=== PATIENT | female | born 1935 | race Caucasian/White ===

== ENCOUNTER → 2016-10-28 | Outpatient (CLI) | payer OTHER ==
--- NOTE | 2016-10-28 15:34 | DX ---
Chest, Two Views at 1501 hours History: Cold and cough for 2 weeks. Comparison: October 2015 Findings: Cardiac silhouette is within normal range. Atherosclerotic tortuous aorta. Linear scarring in the right lower lobe. Bilateral peribronchial thickening. No pneumonia, congestive heart failure, pleural effusion, or pneumothorax. Impression: 1. Bronchitis. 2. Atherosclerotic aorta. 3. No definite focal pneumonia.
== END ==
LOC: CIMAGING 14:50
PROVIDERS: ATTEND Internal Medicine
DX: J40 Bronchitis, not specified as acute or chronic (principal); J44.1 Chronic obstructive pulmonary disease with (acute) exacerbation
CPT/HCPCS: 71020; G0463

== ENCOUNTER 2017-02-04 11:03 | Emergency (ER) | payer OTHER ==
[2017-02-04] MEDS ORDERED: ONDANSETRON 4 MG/2 ML VIAL ONE (11:31)
--- NOTE | 2017-02-04 11:33 | EDPHY ---
H & P Stated Complaint: Urgency, frequency, chills, nausea. Time Seen by Provider: 02/04/17 11:32 - Personal History Current Tetanus/Diphtheria Vaccine: Unsure Current Tetanus Diphtheria and Acellular Pertussis (TDAP): Unsure Tetanus Vaccine Date: within last 10 years - Medical/Surgical History Hx Asthma: No Hx Chronic Respiratory Disease: No Hx Diabetes: No Hx Cardiac Disease: Yes Hx Renal Disease: No Hx Cirrhosis: No Hx Alcoholism: No Hx HIV/AIDS: No Hx Splenectomy or Spleen Trauma: No Other PMH: HTN, high cholesterol, chronic back pain, brain aneurysm clip, hysterectomy, tonsillectomy, bilateral carotid endarterectomy, left hip replacement,cad -stent - Social History Smoking Status: Heavy smoker Constitutional: Initial Vital Signs Temperature (C) 36.8 C 02/04/17 11:12 Heart Rate 86 02/04/17 11:12 Respiratory Rate 16 02/04/17 11:12 Blood Pressure 136/80 H 02/04/17 11:12 O2 Sat (%) 92 02/04/17 11:12 O2 Delivery Mode Room Air Allergies/Adverse Reactions: No Known Allergies Allergy (Verified 02/04/17 11:15) Home Medications: Medication Instructions Recorded Aspirin [Aspirin 81mg (*)] 81 mg PO HS 11/26/14 Ezetimibe/Simvastatin [Vytorin 0.5 each PO HS 11/26/14 10-20 mg Tablet] LORazepam [Ativan (*)] 1 mg PO DAILY PRN 11/26/14 Omeprazole [Prilosec 20 mg] 20 mg PO BID 11/26/14 Furosemide [Lasix 40 MG (*)] 40 mg PO DAILY #10 tab 12/07/14 Petrolat,Wht/Min Oil/Sod Chl 1 tawana EACHEYE HS #1 opht.oint 12/07/14 [Refresh P.m. Ointment] Coreg 10/11/15 Meclizine HCl 02/04/17 Methocarbamol 02/04/17 Proair Hfa 02/04/17 Telmisartan 02/04/17 Vytorin 10-10 mg Tablet 02/04/17 Medical Decision Making ED Course/Re-evaluation: CHIEF COMPLAINT: UTI symptoms HISTORY OF PRESENT ILLNESS: The patient is a 81 y/o female, with a history of UTIs, complaining of suprapubic pain and dysuria for the last few days. Her previous UTI was 3 months ago and resolved with a course of azithromycin. She has associated polyuria, nausea, some dizziness, and mild right-sided flank pain. She reports her symptoms feel exactly the same to previous UTIs. REVIEW OF SYSTEMS: A 10 point review of systems was performed and is negative with the exception of the elements mentioned in the history of present illness. PHYSICAL EXAM: HR, BP, O2 Sat, RR. Temp noted General Appearance: Alert, well hydrated, appropriate, and non-toxic appearing. Head: Atraumatic without scalp tenderness or obvious injury Eyes: Pupils equal, round, reactive to light and accommodation, EOMI, no trauma , no injection. Nose: Atraumatic, no rhinorrhea, clear. Throat: mucus membranes moist. Neck: Supple, nontender, no lymphadenopathy. Respiratory: No retractions, no distress, no wheezes, and no accessory muscle use. Lungs are clear to auscultation bilaterally. Cardiovascular: Regular rate and rhythm, no murmurs, rubs, or gallops. Good capillary refill all extremities. Gastrointestinal: Abdomen is soft, mild suprapubic tenderness, non-distended, no masses, no rebound, no guarding, no peritoneal signs. Musculoskeletal: Normal active ROM of all extremities, atraumatic. Mild right CVA tenderness. Neurological: Alert, appropriate, and interactive. Nonfocal neuro exam. Skin: No rashes, good turgor, no nodules on palpation. Past medical history: Recurrent UTIs and pyelonephritis, hypertension, CAD, external carotid stenosis, cerebral aneurysm Past surgical history: RCA stent 2009, left hip replacement, breast lumpectomy, hysterectomy, cerebral aneurysm clipping. Family history: noncontributory Social history: Smoker. PCP: Dr. Warren DIFFERENTIAL DIAGNOSIS: The differential diagnosis for the patient's dysuria and suprapubic abdominal pain included but was not limited to ovarian cyst, pelvic inflammatory disease, ovarian torsion, urinary tract infection, ectopic , cholecystitis, and appendicitis. MEDICAL DECISION MAKING: This is a 81 y/o female with a history of recurrent UTIs presenting with a few- day history of typical UTI symptoms for her. She has mild suprapubic and right CVA tenderness. Plan for UA and symptomatic treatment at this time. 1L IV NS and 4mg IV Zofran administered. UA indicates she may have a UTI. Due to this and her low back that may indicate upper tract infection, she will receive 1gm IV Ceftriaxone while here. She will be discharged with script for Keflex. I also recommended discussing use of Estrace with her PCP to help prevent recurrent UTIs. Standard UTI care instructions given. She is comfortable with this plan. - Data Points Laboratory Results: 02/04/17 11:20 Urine Color YELLOW Urine Appearance MODERATELY TURBID Urine pH 5.0 (5.0-7.5) Ur Specific Odin 1.013 (1.002-1.030) Urine Protein 2+ H (NEGATIVE) Urine Ketones NEGATIVE (NEGATIVE) Urine Blood 1+ H (NEGATIVE) Urine Nitrate NEGATIVE (NEGATIVE) Urine Bilirubin NEGATIVE (NEGATIVE) Urine Urobilinogen NEGATIVE EU EU (0.2-1.0) Ur Leukocyte Esterase 3+ H (NEGATIVE) Urine RBC Pending Urine WBC Pending Ur Epithelial Cells Pending Urine Glucose NEGATIVE (NEGATIVE) Medications Given: Discontinued Medications Sodium Chloride (Ns) 1,000 mls @ 0 mls/hr IV ONCE ONE PRN Reason: Wide Open Stop: 02/04/17 11:43 Last Admin: 02/04/17 11:42 Dose: 1,000 mls Ondansetron HCl (Zofran) 4 mg IVP EDNOW ONE Stop: 02/04/17 11:43 Last Admin: 02/04/17 11:42 Dose: 4 mg Departure - Departure Disposition: Home, Routine, Self-Care Clinical Impression: Atrophic vaginitis Urinary tract infection Qualifiers: Urinary tract infection type: acute cystitis Hematuria presence: without hematuria Qualified Code(s): N30.00 - Acute cystitis without hematuria Condition: Good Instructions: Urinary Tract Infection in Women (ED) Additional Instructions: 1. Take antibiotics as directed. Be sure to complete the entire prescription. 2. Use Tylenol or ibuprofen as directed on the packaging as needed for pain or fever. 3. Call the ED in 2 days for culture results. [phone]. 4. Follow up with your primary care provider for symptoms not improved over the next few days. 5. Return to the ED for severe worsening of condition. 6. I also recommend discussing possibility of atrophic vaginitis causing your recurrent UTIs with your PCP. Intravaginal Estrace may be a good option for you. Referrals: Mikala Warren MD [Primary Care Provider] - As per Instructions
[2017-02-04] MEDS ORDERED: ONDANSETRON 4 MG/2 ML VIAL IVP ONE (11:42)
[2017-02-04] MEDS ORDERED: NS 1,000 ML IV ONE (11:42)
[2017-02-04 12:28] LABS: COLOR YELLOW; LEUKOCYTE ESTERASE,URINE 3+ (NEGATIVE); NITRITE,URINE NEGATIVE (NEGATIVE)
[2017-02-04 12:34] LABS: BACTERIA 2+ /hpf (NONE SEEN); MUCUS TRACE /lpf (NONE-1+); WBC,URINE 50-182 /hpf (0-3)
[2017-02-04 12:54] VITALS: BP 162/85; PULSE 69; RESP 18; TEMP 98.6; O2SAT 98
== END 2017-02-04 12:52 | disposition home or self-care (01) ==
DX: N30.00 Acute cystitis without hematuria (principal); B96.89 Other specified bacterial agents as the cause of diseases classified elsewhere; N95.2 Postmenopausal atrophic vaginitis; F17.200 Nicotine dependence, unspecified, uncomplicated; I10 Essential (primary) hypertension; I25.10 Atherosclerotic heart disease of native coronary artery without angina pectoris; Z79.82 Long term (current) use of aspirin; Z95.5 Presence of coronary angioplasty implant and graft
CPT/HCPCS: 96361; 96365; 96375; 99284; J0696; J2405

== ENCOUNTER → 2018-05-05 | Outpatient (CLI) | payer OTHER | LOC: CIMAGING 08:46 | PROVIDERS: ATTEND Internal Medicine | DX: K86.9 Disease of pancreas, unspecified (principal); N26.1 Atrophy of kidney (terminal) | CPT/HCPCS: 76700-PO ==

== ENCOUNTER → 2018-06-27 | Outpatient (CLI) | payer OTHER ==
[~2018-06-27] MED LIST: IOPAMIDOL (ISOVUE-300) 100 ML BTL ONE
== END ==
LOC: CIMAGING 13:15
PROVIDERS: ATTEND Physician Assistant
DX: K57.30 Diverticulosis of large intestine without perforation or abscess without bleeding (principal); I70.0 Atherosclerosis of aorta; E27.9 Disorder of adrenal gland, unspecified
CPT/HCPCS: 74177; Q9967; 82565-PO

== ENCOUNTER → 2018-07-14 | Outpatient (CLI) | payer OTHER ==
[~2018-07-14] MED LIST changes: +GADOBUTROL 10 ML VIAL IVP ONE; -IOPAMIDOL (ISOVUE-300) 100 ML BTL ONE
== END ==
LOC: FIMAGING 12:28
PROVIDERS: ATTEND Nurse Practitioner
DX: D32.0 Benign neoplasm of cerebral meninges (principal); R90.82 White matter disease, unspecified; G31.9 Degenerative disease of nervous system, unspecified
CPT/HCPCS: 70553; 72148; A9585; 82565-PO

== ENCOUNTER 2018-07-26 17:40 | Inpatient (IN) | payer OTHER ==
--- NOTE | 2018-07-26 17:55 | EDPHY ---
H & P Time Seen by Provider: 07/26/18 17:45 HPI/ROS: Chief complaint. Fall, hip pain and chest pain HPI. 82-year-old female presents for EMS after trip and fall at home. She tripped over a carpet and landed on her left chest and left hip. She was able to get up and bear weight. She has had a previous hip replacement in 2002 in [place]. She also normally takes blood pressure medication in the evening and is concerned about her elevated blood pressure. She did not strike her head or lose consciousness. She has no neck pain. No right-sided chest pain. No abdominal pain. No injury to right or left arm or right leg. ROS 10 systems were reviewed and negative with the exception of the elements mentioned in the history of present illness Past Medical/Surgical History: Hypertension, dyslipidemia, chronic back pain, brain aneurysm that is been clipped, bilateral carotid endarterectomy, left hip replacement, coronary artery disease with stent Social History: , daily smoker, no alcohol Smoking Status: Heavy smoker Physical Exam: General Appearance: Alert well-developed female moderate distress vital signs significant for blood pressure 174/121 Eyes: Pupils equal and round no pallor or injection. ENT, Mouth: Mucous membranes are moist. Respiratory: There are no retractions, lungs are clear to auscultation. Cardiovascular: Regular rate and rhythm. Gastrointestinal: Abdomen is soft and nontender, no masses, bowel sounds normal. Neurological: Awake and alert, sensory and motor exams grossly normal. Skin: Warm and dry, no rashes. Musculoskeletal: Neck is supple nontender. Pain left chest to palpation mid axillary line about T8, T9. Extremities pain left hip without deformity. She shows me pain in the left hip as well as the upper femur. No obvious deformity Psychiatric: Patient is oriented X 3, there is no agitation. Constitutional: Initial Vital Signs Temperature (C) 36.8 C 07/26/18 17:40 Heart Rate 72 07/26/18 17:40 Respiratory Rate 16 07/26/18 17:40 Blood Pressure 174/121 H 07/26/18 17:40 O2 Sat (%) 95 07/26/18 17:40 O2 Delivery Mode Room Air Allergies/Adverse Reactions: No Known Allergies Allergy (Verified 02/04/17 11:15) Home Medications: Medication Instructions Recorded Aspirin [Aspirin 81mg (*)] 81 mg PO HS 11/26/14 LORazepam [Ativan (*)] 1 mg PO DAILY PRN 11/26/14 Omeprazole [Prilosec 20 mg] 20 mg PO BID 11/26/14 Petrolat,Wht/Min Oil/Sod Chl 1 tawana EACHEYE HS #1 opht.oint 12/07/14 [Refresh P.m. Ointment] Coreg 10/11/15 Proair Hfa 02/04/17 Telmisartan 02/04/17 Atorvastatin Calcium 07/26/18 Dicyclomine 07/26/18 HCTZ (*) 07/26/18 Ondansetron 07/26/18 oxyCODONE CR 07/26/18 Medical Decision Making - Diagnostics Imaging Results: Imaging Impressions Chest X-Ray 07/26/18 18:05 Impression: 1. Atherosclerotic aorta. 2. No pneumonia or congestive heart failure. 3. No pneumothorax. Femur X-Ray 07/26/18 18:05 Impression: Negative. No acute fracture. Hip X-Ray 07/26/18 18:05 Impression: Negative. No acute fracture or dislocation. Procedures: IV normal saline. Fentanyl for pain. Telmisartan and Coreg orally for blood pressure ED Course/Re-evaluation: Re-evaluation patient and I discussed imaging and lab results. We discussed treatment plan. The patient really is having a difficult time ambulating. Her is 87 and infirm and really cannot help take care of her. She really cannot go home tonight I consulted discussed case with Dr. Morrison who agrees to the admission Patient continues to have discomfort she is given a Percocet and Toradol IV. Differential Diagnosis: I considered rib fractures, pneumothorax, hemothorax, left hip fracture or dislocation. These appear to be contusions - Data Points Laboratory Results: Laboratory Results 07/26/18 17:55 07/26/18 17:55 07/26/18 07/26/18 07/26/18 17:55 17:55 17:55 WBC 6.27 10^3/uL 10^3/uL (3.80-9.50) RBC 4.94 10^6/uL 10^6/uL (4.18-5.33) Hgb 15.0 g/dL g/dL (12.6-16.3) Hct 42.6 % % (38.0-47.0) MCV 86.2 fL fL (81.5-99.8) MCH 30.4 pg pg (27.9-34.1) MCHC 35.2 g/dL g/dL (32.4-36.7) RDW 12.9 % % (11.5-15.2) Plt Count 202 10^3/uL 10^3/uL (150-400) MPV 10.8 fL fL (8.7-11.7) Neut % (Auto) 47.1 % % (39.3-74.2) Lymph % (Auto) 34.0 % % (15.0-45.0) Evangeline % (Auto) 15.5 % H % (4.5-13.0) Eos % (Auto) 2.1 % % (0.6-7.6) Baso % (Auto) 0.8 % % (0.3-1.7) Nucleat RBC Rel Count 0.0 % % (0.0-0.2) Absolute Neuts (auto) 2.96 10^3/uL 10^3/uL (1.70-6.50) Absolute Lymphs (auto) 2.13 10^3/uL 10^3/uL (1.00-3.00) Absolute Monos (auto) 0.97 10^3/uL H 10^3/uL (0.30-0.80) Absolute Eos (auto) 0.13 10^3/uL 10^3/uL (0.03-0.40) Absolute Basos (auto) 0.05 10^3/uL 10^3/uL (0.02-0.10) Absolute Nucleated RBC 0.00 10^3/uL 10^3/uL (0-0.01) Immature Gran % 0.5 % % (0.0-1.1) Immature Gran # 0.03 10^3/uL 10^3/uL (0.00-0.10) PT 12.5 SEC SEC (12.0-15.0) INR 0.91 (0.83-1.16) APTT 26.8 SEC SEC (23.0-38.0) Sodium 133 mEq/L L mEq/L (135-145) Potassium 3.8 mEq/L mEq/L (3.3-5.0) Chloride 95 mEq/L L mEq/L (97-110) Carbon Dioxide 25 mEq/l mEq/l (22-31) Anion Gap 13 mEq/L mEq/L (6-14) BUN 18 mg/dL mg/dL (7-23) Creatinine 1.1 mg/dL H mg/dL (0.6-1.0) Estimated GFR 48 Glucose 101 mg/dL H mg/dL (70-100) Calcium 9.5 mg/dL mg/dL (8.5-10.4) Medications Given: Discontinued Medications Hydrocodone Bitart/Acetaminophen ([place] 5/325) 1 tab PO EDNOW ONE Stop: 07/26/18 20:07 Last Admin: 07/26/18 20:07 Dose: 1 tab Carvedilol (Coreg) 6.25 mg PO EDNOW ONE Stop: 07/26/18 18:05 Last Admin: 07/26/18 19:18 Dose: 6.25 mg Fentanyl (Sublimaze) 100 mcg IVP EDNOW ONE Stop: 07/26/18 18:03 Last Admin: 07/26/18 18:03 Dose: 100 mcg Ketorolac Tromethamine (Toradol) 15 mg IVP EDNOW ONE Stop: 07/26/18 19:55 Last Admin: 07/26/18 20:08 Dose: 15 mg Telmisartan (Micardis) 40 mg PO EDNOW ONE Stop: 07/26/18 18:41 Last Admin: 07/26/18 19:18 Dose: 40 mg Departure - Departure Disposition: [facility] Acute Clinical Impression: Contusion of hip, left Qualifiers: Encounter type: initial encounter Qualified Code(s): S70.02XA - Contusion of left hip, initial encounter Contusion of left chest wall Qualifiers: Encounter type: initial encounter Qualified Code(s): S20.212A - Contusion of left front wall of thorax, initial encounter Condition: Fair Referrals: Patient,NotPresent [Primary Care Provider] - As per Instructions
[2018-07-26] MEDS ORDERED: fentaNYL 100 MCG/2 ML INJ ONE (17:59)
[2018-07-26] MEDS ORDERED: fentaNYL 100 MCG/2 ML INJ IVP ONE (18:02)
[2018-07-26] MEDS ORDERED: CARVEDILOL 6.25 MG TAB PO ONE (18:04)
[2018-07-26 18:15] LABS: PLATELET COUNT 202 10^3/uL (150-400)
[2018-07-26] MEDS ORDERED: TELMISARTAN 40 MG TAB PO ONE (18:40)
[2018-07-26 18:43] LABS: INR 0.91 (0.83-1.16); PROTIME(PATIENT) 12.5 SEC (12.0-15.0)
[2018-07-26] MEDS ORDERED: ACETAMINOPHEN 500 MG TAB PO ONE (19:53)
[2018-07-26] MEDS ORDERED: KETOROLAC 15 MG/1 ML SDV IVP ONE (19:54)
[2018-07-26] MEDS ORDERED: HYDROCODONE/APAP 5/325 TAB PO ONE (20:06)
[2018-07-26] MEDS ORDERED: LIDOCAINE 4%/MENTHOL 1% PATCH TD ONE (21:02)
[2018-07-26] MEDS ORDERED: ONDANSETRON 4 MG/2 ML VIAL IVP PRN (21:43)
[2018-07-26] MEDS ORDERED: HYDROCODONE/APAP 5/325 TAB PO PRN (21:43)
[2018-07-26] MEDS ORDERED: PROMETHAZINE HCL 25 MG/ML INJ IVP PRN (21:43)
[2018-07-26] MEDS ORDERED: HYDROmorphONE/DILAUDID 1 MG/ML INJ IVP PRN (21:43)
[2018-07-26] MEDS ORDERED: ONDANSETRON DISINTEGRATING 4 MG TAB PO PRN (21:43)
[2018-07-26] MEDS ORDERED: hydrALAZINE 20 MG/ML VIAL IVP PRN (21:45)
[2018-07-26] MEDS ORDERED: LORazepam 0.5 MG TAB PO PRN (23:13)
[2018-07-26] MEDS ORDERED: MECLIZINE HCL 25 MG TAB PO PRN (23:13)
[2018-07-26] MEDS ORDERED: ALBUTEROL 60 PUFFS/8 GM MDI IH PRN (23:13)
[2018-07-26] MEDS ORDERED: LACTULOSE 20 GM/30 ML UDCUP PO PRN (23:17)
[2018-07-26] MEDS ORDERED: BISACODYL 10 MG SUPP PR PRN (23:17)
[2018-07-26] MEDS ORDERED: MAGNESIUM HYDROXIDE 30 ML UDCUP PO PRN (23:17)
[2018-07-26] MEDS ORDERED: POLYETHYLENE GLYCOL 3350 17 GM PKT PO PRN (23:17)
[2018-07-27] MEDS: TELMISARTAN 40 MG TAB PO SCH ×3 (00:01→20:15)
[2018-07-27] MEDS: oxyCODONE IR 5 MG TAB PO PRN ×4 (00:01→20:14)
[2018-07-27] MEDS: LORazepam 0.5 MG TAB PO SCH ×2 (00:01→20:15)
[2018-07-27] MEDS: SENNOSIDES PO SCH ×2 (00:05→23:01)
[2018-07-27] MEDS: DOCUSATE SODIUM PO SCH ×2 (00:05→23:01)
--- NOTE | 2018-07-27 00:13 | GHP ---
DATE OF ADMISSION: 07/26/2018 CHIEF COMPLAINT: Fall and hip pain. HISTORY: This is an 82-year-old female with a past medical history that includes CAD, hypertension, hyperlipidemia, and COPD who presents status post a trip and fall at home. The patient notes that luis manuel jeronimo was carrying groceries when she tripped over a rug. She landed on her left side, hurting her chest and hip. She notes she was able to walk but did not feel safe walking after that. She feels as if she is having muscle spasms. She notes that she did not hit her head nor did she lose consciousness. She does not have a history of frequent falls. She does not feel safe going home. PAST MEDICAL HISTORY: Includes: 1. Hypertension. 2. Hyperlipidemia. 3. Coronary artery disease. 4. Chronic pain with continuous narcotic use and dependence. 5. History of bilateral CEA. 6. COPD. PAST SURGICAL HISTORY: Includes: 1. Bilateral CEA. 2. Cerebral aneurysm clipping. 3. Cardiac stent. 4. Hip replacement. 5. Hysterectomy. 6. Breast lumpectomy. FAMILY HISTORY: Various family members with hypertension and coronary disease. SOCIAL HISTORY: Patient currently lives with her boyfriend independently. She notes her boyfriend i s 87. REVIEW OF SYSTEMS: 10-point review of systems obtained, negative except as per HPI. HOME MEDICATIONS: 1. Oxycodone. 2. Telmisartan. 3. Senna. 4. ProAir. 5. Zofran. 6. Prilosec. 7. Meclizine. 8. Lorazepam. 9. Hydrochlorothiazide. 10. Carvedilol. 11. Atorvastatin. 12. Aspirin. ALLERGIES: No known drug allergies. PHYSICAL EXAMINATION: VITAL SIGNS: BP 171/97, heart rate 77, respiratory rate 16, O2 sats 92% on ro om air. Temperature is 36.6. GENERAL APPEARANCE: This is an elderly female. She is awake and aler t. She is in no acute distress. HEENT: Eyes anicteric. Oropharynx is clear. CARDIOVASCULAR: Reg ular rate and rhythm. No MRG. PULMONARY: CTA bilaterally. Normal work of breathing to anterior ex am. ABDOMEN: Soft, nontender, nondistended. EXTREMITIES: No clubbing, cyanosis, or edema. SKIN: Warm, dry, well perfused. NEURO/PSYCH: Oriented and appropriate, pleasant. CLINICAL DATA: 1. Labs reviewed and notable for normal CBC. Coags are unremarkable. Chemistry is notable for a so dium of 133 and a creatinine of 1.1. 2. Chest x-ray personally reviewed and interpreted, shows no pneumonia or CHF. No pneumothorax. 3. Hip x-ray is negative for fracture or dislocation. 4. Femur x-ray negative for fracture. ASSESSMENT/PLAN: This is an 82-year-old female, past medical history of coronary artery disease and hypertension, presenting status post mechanical fall at home with left-sided pain. 1. Fall. This sounds to be mechanical in nature. Nothing to suggest preceding cardiac event. Phys ical Therapy and Occupational Therapy will be involved. Her gait currently is unstable secondary to pain as per next. 2. Left-sided pain. Patient with pain throughout her left side. Imaging is reassuring. She is abl e to ambulate and walk but does not feel steady. Physical Therapy and Occupational Therapy will be i nvolved. Should she fail to improve as expected, could consider further imaging to rule out soft tis bairon injury. 3. Coronary artery disease without any evidence of acute coronary syndrome at this time. We will co ntinue her home medications. 4. Uncontrolled hypertension. Blood pressure elevated in the emergency room to the 170s to 190s sys tolic in the setting of significant pain. Started on hydralazine as needed, and will resume her home medications which include Coreg, hydrochlorothiazide, and telmisartan. 5. Chronic pain with continuous narcotic use and dependency. Will continue her home medications. S he will likely need additional pain medications while in-house. She does have constipation as a side effect of this, and will start bowel protocol. 6. Chronic anxiety with chronic benzodiazepine use. We will continue her home doses of Ativan. She denies any negative effects from continuing these medications. 7. Chronic kidney disease. This is currently at baseline. 8. Code status is full. 9. Disposition: Observation status for now. Suspect patient will likely be ready to discharge in l ess than 48 hours. 10. Patient is new to my care. Old records reviewed, summarized as per HPI and past medical history . Care plan reviewed with ER physician including plans for PT, OT evaluations. /[id number]/MODL
[2018-07-27] MEDS: HYDROCHLOROTHIAZIDE 25 MG TAB PO SCH ×3 (08:10→20:16)
[2018-07-27] MEDS: ENOXAPARIN 40 MG/0.4 ML SYR SC SCH (08:10)
[2018-07-27] MEDS: ATORVASTATIN CALCIUM 20 MG TAB PO SCH ×3 (08:10→20:15)
[2018-07-27] MEDS: CARVEDILOL 6.25 MG TAB PO SCH ×2 (08:10→17:13)
[2018-07-27] MEDS: PANTOPRAZOLE SODIUM 40 MG TAB PO SCH (08:11)
[2018-07-27] MEDS ORDERED: LIDOCAINE 4%/MENTHOL 1% PATCH TD SCH (09:00)
[2018-07-27] MEDS: METHOCARBAMOL 750 MG TAB PO PRN ×3 (09:54→23:05)
[2018-07-27] MEDS: PATCH REMOVAL 1 EA PATCH TD SCH (10:02)
[2018-07-27] MEDS: SENNOSIDES/DOCUSATE SODIUM TAB PO SCH (10:03)
[2018-07-27] MEDS: NICOTINE 14 MG/24 HR PATCH TD SCH (10:40)
[2018-07-27] MEDS: LIDOCAINE 4%/MENTHOL 1% PATCH TD SCH (11:21)
--- NOTE | 2018-07-27 14:22 | HOSPPROG ---
Hospitalist Progress Note Assessment/Plan: Patient is an 82 y/o woman who presented to the ER with left sided pain after sustaining a mechanical fall. Today is my first encounter w the patient, chart reviewed. *Fall,gait instability -she was carrying groceries and tripped on the elin -she was not lightheaded, just lost hr balance *left side pain/ aydee in left rib area, difficulty w moving -imaging doesn't show an injury -trial of topical Voltaren *CAD -no c/o cp *uncontrolled HTN -blood pressure stable *chronic pain w continuous narcotic use and dependancy -she has left hip bursitis *Chronic anxiety w chronic benzodiazepine use -she uses this medication mainly at night to help her sleep and prn if her blood pressure is very high *CKD -close to baseline *nicotine dependence: patch ordered *plan: she is in significant pain mainly on her left rib area, high risk for falling. Will try non narcotics to see how she does. Also, Robaxin ordered to see if this may help. She will require another midnight stay due to the pain. Will need home care. Subjective: Gretta is c/o significant rib pain anytime she moves or leans forward. Objective: Vital Signs Temp Pulse Resp BP Pulse Ox 36.8 C 65 12 124/60 H 91 L 07/27/18 12:00 07/27/18 12:00 07/27/18 12:00 07/27/18 12:00 07/27/18 12:00 07/26/18 07/27/18 07/28/18 05:59 05:59 05:59 Intake Total 300 Balance 300 PT 12.5 SEC (12.0-15.0) 07/26/18 17:55 INR 0.91 (0.83-1.16) 07/26/18 17:55 - Physical Exam Constitutional: uncomfortable, No not in pain (left rib) Eyes: PERRL Ears, Nose, Mouth, Throat: hearing normal Cardiovascular: regular rate and rhythym Respiratory: no respiratory distress, clear to auscultation Gastrointestinal: normoactive bowel sounds Skin: warm, other (bruising on her left upper arm area) Musculoskeletal: generalized weakness Neurologic: AAOx3 Psychiatric: interacting appropriately, not anxious ICD10 Worksheet Patient Problems: Problems Problem Status Onset Contusion of hip, left Acute Contusion of left chest wall Acute UTI (lower urinary tract infection) Acute
--- NOTE | 2018-07-27 15:11 | ASMTCMCOM ---
CM Note CM Note Notes: Spoke with pt in the room and with pt's RN. Pt lives at home with domestic partner Mauro who is 87 and able to help in a limited capacity due to his age. Mauro's son also lives on the property and can be a little supportive. Pt was admitted after a fall for difficulty ambulating due to soft tissue injury. Pt is a smoker and is anxious to return home due to lack of nicotine here. Pt also has chronic pain and anxiety. PT recommending homecare. [facility] has accepted and referral sent. D/C plan : home with [facility] Date Signed: 07/27/2018 03:11 PM Electronically Signed By:Elinor Art
[2018-07-27] MEDS: DICLOFENAC SODIUM 1% 100 GM GEL TP SCH ×2 (15:43→20:14)
--- NOTE | 2018-07-27 17:02 | ASMTCMCOM ---
CM Note CM Note Notes: Pt is now requesting evaluation for SNF rehab after discharge. Hospitalist notified. CM will need to request re-evaluation from PT tomorrow. Pt is concerned that she is struggling with ADLs due to pain. Pt provided information on various SNFs in the area. She is requesting [facility]. No referrals have been sent yet. D/C Plan: SNF Date Signed: 07/27/2018 05:02 PM Electronically Signed By:Elinor Art
[2018-07-27] MEDS ORDERED: TELMISARTAN 40 MG TAB PO ONE (18:05)
[2018-07-27] MEDS: ASPIRIN 81 MG CHEWABLE TAB PO SCH (20:14)
[2018-07-28] MEDS: SENNOSIDES/DOCUSATE SODIUM TAB PO SCH ×3 (00:06→21:37)
[2018-07-28] MEDS: DICLOFENAC SODIUM 1% 100 GM GEL TP SCH ×4 (05:13→21:47)
[2018-07-28] MEDS: PANTOPRAZOLE SODIUM 40 MG TAB PO SCH ×3 (08:12→17:26)
[2018-07-28] MEDS: CARVEDILOL 6.25 MG TAB PO SCH ×2 (08:12→18:13)
[2018-07-28] MEDS: NICOTINE 14 MG/24 HR PATCH TD SCH (08:13)
[2018-07-28] MEDS: ENOXAPARIN 40 MG/0.4 ML SYR SC SCH (08:17)
[2018-07-28] MEDS: TELMISARTAN 40 MG TAB PO SCH ×3 (08:23→21:38)
[2018-07-28] MEDS: METHOCARBAMOL 750 MG TAB PO PRN ×2 (08:34→19:40)
--- NOTE | 2018-07-28 09:00 | PDMN ---
Medical Necessity Medical necessity: Change to IP, as of 07/28/18, per & [facility] CG-GDC (General Discharge Criteria); los >2 mn for ongoing management of severe (9 of 10) rib pain s/p fall; requiring further monitoring, pain management & therapies; comorbid advanced age, COPD, CAD
[2018-07-28] MEDS: LIDOCAINE 4%/MENTHOL 1% PATCH TD SCH (09:04)
[2018-07-28] MEDS: PATCH REMOVAL 1 EA PATCH TD SCH (09:05)
--- NOTE | 2018-07-28 10:55 | ASMTCMCOM ---
CM Note CM Note Notes: Pt still having difficulty with ADLs and walking to commode due to pain and soft tissue injury. PT now recommending SNF. Pt prefers [facility] as she lives in [place] with limited support at home. Referral sent to [facility]. [facility] notified home care will not be needed. Pt made inpatient status yesterday. Likely discharge Monday 07/30. CM to follow. D/C Plan: [facility] pending auth Date Signed: 07/28/2018 10:54 AM Electronically Signed By:Elinor Art
--- NOTE | 2018-07-28 13:27 | HOSPPROG ---
Hospitalist Progress Note Assessment/Plan: Patient is an 82 y/o woman who presented to the ER with left sided pain after sustaining a mechanical fall. *Fall,gait instability -she was carrying groceries and tripped on the elin -she was not lightheaded, just lost her balance -therapies recommending SNF *left side pain/ aydee in left rib area, difficulty w moving/suspect she has a rib fx -imaging doesn't show an injury -trial of topical Voltaren which has helped, PT has shown her how to use a splint which has helped *CAD -no c/o cp *uncontrolled HTN -blood pressure low this morning *chronic pain w continuous narcotic use and dependancy -she has left hip bursitis *Chronic anxiety w chronic benzodiazepine use -she uses this medication mainly at night to help her sleep and prn if her blood pressure is very high *CKD -close to baseline *nicotine dependence: patch ordered *plan: continue supportive care, will go to rehab soon Subjective: Gretta said her pain is well managed with use of splint and voltaren cream. Objective: Vital Signs Temp Pulse Resp BP Pulse Ox 36.6 C 60 16 99/53 L 94 07/28/18 11:36 07/28/18 11:36 07/28/18 11:36 07/28/18 11:36 07/28/18 11:36 07/27/18 07/28/18 07/29/18 05:59 05:59 05:59 Intake Total 410 250 Output Total 500 300 Balance -90 -50 PT 12.5 SEC (12.0-15.0) 07/26/18 17:55 INR 0.91 (0.83-1.16) 07/26/18 17:55 - Physical Exam Constitutional: uncomfortable Eyes: PERRL Ears, Nose, Mouth, Throat: hearing normal Cardiovascular: regular rate and rhythym Respiratory: no respiratory distress Skin: warm Musculoskeletal: generalized weakness Neurologic: AAOx3 Psychiatric: interacting appropriately ICD10 Worksheet Patient Problems: Problems Problem Status Onset Contusion of hip, left Acute Contusion of left chest wall Acute UTI (lower urinary tract infection) Acute
--- NOTE | 2018-07-28 16:16 | ASMTCMCOM ---
CM Note CM Note Notes: Addendum to last CM note: Pt accepted by [facility]. D/C Plan: [facility] Date Signed: 07/28/2018 04:16 PM Electronically Signed By:Elinor Art
[2018-07-28] MEDS ORDERED: PREPARATION H 51 GM CRTUBE PR PRN (17:14)
[2018-07-28] MEDS: oxyCODONE IR 5 MG TAB PO PRN (19:31)
[2018-07-28] MEDS: HYDROCHLOROTHIAZIDE 25 MG TAB PO SCH (21:36)
[2018-07-28] MEDS: LORazepam 0.5 MG TAB PO SCH (21:37)
[2018-07-28] MEDS: ASPIRIN 81 MG CHEWABLE TAB PO SCH (21:37)
[2018-07-28] MEDS: ATORVASTATIN CALCIUM 20 MG TAB PO SCH (21:37)
[2018-07-28] MEDS: SENNOSIDES PO SCH (21:45)
[2018-07-28] MEDS: DOCUSATE SODIUM PO SCH (21:45)
[2018-07-29] MEDS: oxyCODONE IR 5 MG TAB PO PRN ×5 (03:20→19:32)
[2018-07-29] MEDS: DICLOFENAC SODIUM 1% 100 GM GEL TP SCH ×4 (06:21→22:28)
[2018-07-29] MEDS: CARVEDILOL 6.25 MG TAB PO SCH ×2 (07:35→18:52)
[2018-07-29] MEDS: PATCH REMOVAL 1 EA PATCH TD SCH (08:16)
[2018-07-29] MEDS: PANTOPRAZOLE SODIUM 40 MG TAB PO SCH ×2 (08:58→22:24)
[2018-07-29] MEDS: SENNOSIDES/DOCUSATE SODIUM TAB PO SCH ×2 (08:58→22:25)
[2018-07-29] MEDS: TELMISARTAN 40 MG TAB PO SCH ×2 (08:58→22:21)
[2018-07-29] MEDS: ENOXAPARIN 40 MG/0.4 ML SYR SC SCH (08:58)
[2018-07-29] MEDS: NICOTINE 14 MG/24 HR PATCH TD SCH (08:59)
[2018-07-29] MEDS: LIDOCAINE 4%/MENTHOL 1% PATCH TD SCH (09:00)
--- NOTE | 2018-07-29 11:40 | HOSPPROG ---
Hospitalist Progress Note Assessment/Plan: Patient is an 82 y/o woman who presented to the ER with left sided pain after sustaining a mechanical fall. First encounter, chart reviewed. *Fall,gait instability -she was carrying groceries and tripped on the elin -she was not lightheaded, just lost her balance -therapies recommending SNF *left side pain/ aydee in left rib area, difficulty w moving/suspect she has a rib fx -imaging doesn't show an injury -trial of topical Voltaren which has helped, PT has shown her how to use a splint which has helped *CAD -no c/o cp *uncontrolled HTN -blood pressure stable *chronic pain w continuous narcotic use and dependancy -she has left hip bursitis *Chronic anxiety w chronic benzodiazepine use -she uses this medication mainly at night to help her sleep and prn if her blood pressure is very high *CKD -close to baseline *nicotine dependence: -patch ordered *plan: -continue supportive care, will go to rehab soon -rehab in am if pain controlled -D/W CM and RN Subjective: Up in chair. Still having pain. No new issues. Objective: Vital Signs Temp Pulse Resp BP Pulse Ox 36.6 C 62 14 135/63 H 90 L 07/29/18 07:30 07/29/18 07:30 07/29/18 07:30 07/29/18 07:30 07/29/18 07:30 07/28/18 07/29/18 07/30/18 05:59 05:59 05:59 Intake Total 410 750 Output Total 500 1000 Balance -90 -250 PT 12.5 SEC (12.0-15.0) 07/26/18 17:55 INR 0.91 (0.83-1.16) 07/26/18 17:55 - Physical Exam Constitutional: no apparent distress, appears nourished, uncomfortable Eyes: PERRL, anicteric sclera, EOMI Ears, Nose, Mouth, Throat: moist mucous membranes, hearing normal, ears appear normal Cardiovascular: No JVD, No tachycardia, No edema Respiratory: no respiratory distress, no rales or rhonchi, reduced air movement Gastrointestinal: normoactive bowel sounds, No tenderness, No ascites Skin: warm, normal color, No mottled Musculoskeletal: muscular tenderness, abnormal gait, generalized weakness Neurologic: AAOx3 Psychiatric: interacting appropriately, not anxious, not encephalopathic, thought process linear ICD10 Worksheet Patient Problems: Problems Problem Status Onset UTI (lower urinary tract infection) Acute Contusion of hip, left Acute Contusion of left chest wall Acute
[2018-07-29] MEDS: METHOCARBAMOL 750 MG TAB PO PRN (13:21)
[2018-07-29] MEDS: HYDROCHLOROTHIAZIDE 25 MG TAB PO SCH (22:23)
[2018-07-29] MEDS: LORazepam 0.5 MG TAB PO SCH (22:23)
[2018-07-29] MEDS: ASPIRIN 81 MG CHEWABLE TAB PO SCH (22:23)
[2018-07-29] MEDS: ATORVASTATIN CALCIUM 20 MG TAB PO SCH (22:25)
[2018-07-29] MEDS: SENNOSIDES PO SCH (22:29)
[2018-07-29] MEDS: DOCUSATE SODIUM PO SCH (22:29)
[2018-07-30] MEDS: DICLOFENAC SODIUM 1% 100 GM GEL TP SCH ×3 (06:26→16:00)
[2018-07-30] MEDS: ENOXAPARIN 40 MG/0.4 ML SYR SC SCH (09:13)
[2018-07-30] MEDS: oxyCODONE IR 5 MG TAB PO PRN ×2 (09:17→13:47)
[2018-07-30] MEDS: TELMISARTAN 40 MG TAB PO SCH (09:19)
[2018-07-30] MEDS: PANTOPRAZOLE SODIUM 40 MG TAB PO SCH (09:20)
[2018-07-30] MEDS: SENNOSIDES/DOCUSATE SODIUM TAB PO SCH (09:20)
[2018-07-30] MEDS: NICOTINE 14 MG/24 HR PATCH TD SCH (09:20)
[2018-07-30] MEDS: CARVEDILOL 6.25 MG TAB PO SCH (09:28)
[2018-07-30] MEDS: LIDOCAINE 4%/MENTHOL 1% PATCH TD SCH (09:29)
[2018-07-30] MEDS: METHOCARBAMOL 750 MG TAB PO PRN ×2 (09:29→15:59)
[2018-07-30] MEDS: PATCH REMOVAL 1 EA PATCH TD SCH (09:29)
--- NOTE | 2018-07-30 10:20 | PDIAF ---
- Diagnosis Diagnosis: fall Code Status: Full Code - Medication Management Discharge Medications: Medications to Continue on Transfer Aspirin [Aspirin 81mg (*)] 81 mg PO HS 11/26/14 [Last Taken 07/25/18] LORazepam [Ativan (*)] 0.5 mg PO DAILY PRN 11/26/14 [Last Taken 11/26/14] Omeprazole [Prilosec 20 mg] 20 mg PO BID 11/26/14 [Last Taken 07/26/18 09:00] Carvedilol [Coreg] 12.5 mg PO HS 10/11/15 [Last Taken 07/26/18 18:00] Proair Hfa 1 inh IH Q4 PRN 02/04/17 [Last Taken Unknown] Telmisartan [Micardis] 80 mg PO BID 02/04/17 [Last Taken 07/26/18 21:00] Atorvastatin Calcium [Lipitor 20 mg (*)] 20 mg PO DAILY 07/26/18 [Last Taken ] Hydrochlorothiazide [HCTZ (*)] 25 mg PO DAILY 07/26/18 [Last Taken Unknown] LORazepam [Ativan (*)] 0.5 mg PO HS 07/26/18 [Last Taken 07/25/18] Meclizine HCl [Meclizine HCl 25 mg (RX,OTC)] 25 mg PO BID PRN 07/26/18 [Last Taken Unknown] Ondansetron Odt [Zofran Odt 4 mg (*)] 4 mg PO TID PRN 07/26/18 [Last Taken Unknown] Sennosides/Docusate Sodium [SENEXON-S TABLET] 3 each PO HS 07/26/18 [Last Taken 07/25/18] Acetaminophen [Tylenol 325mg (*)] 650 mg PO Q4HRS PRN tab 07/30/18 [Last Taken Unknown] Diclofenac Sodium 1% [Voltaren Gel (*)] 4 gm TP QID gel 07/30/18 [Last Taken Unknown] Hydrocodone/APAP 5/325 [[place] 5/325 (*)] 1 - 2 tab PO Q4HRS PRN tab 07/30/18 [ Last Taken Unknown] Lidocaine 4%/Menthol 1% [Icy Hot Lidocaine/Menthol 4%/1% Patch (*)] 2 patch TD DAILY patch 07/30/18 [Last Taken Unknown] Methocarbamol [Robaxin 750 mg (*)] 750 mg PO TID PRN tab 07/30/18 [Last Taken Unknown] Nicotine [Nicoderm Cq 14 mg (*)] 14 mg TD DAILY patch 07/30/18 [Last Taken Unknown] PE/Shark Liver/Gly/Pet,Wh [Preparation H Cream (*)] 1 t[place]ana [place] QID PRN crtube [Last Taken Unknown] Patch Removal 2 ea TD DAILY patch 07/30/18 [Last Taken Unknown] Polyethylene Glycol 3350 [Miralax 17 gm (*)] 17 gm PO DAILY PRN pkt 07/30/18 [ Last Taken Unknown] oxyCODONE IR [Oxycodone Ir (*)] 5 - 10 mg PO Q3HRS PRN tab 07/30/18 [Last Taken Unknown] Discharge Medications: Refer to the Discharge Home Medication list for PRN reason. PICC Care - Routine: N/A - Orders Services needed: Registered Nurse, Physical Therapy, Occupational Therapy Diet Recommendation: no restrictions on diet - Follow Up Care Current Providers and Referrals: Patient,NotPresent [Unknown] - As per Instructions
[2018-07-30 11:24] VITALS: BP 113/55
[2018-07-30] MEDS: ACETAMINOPHEN 325 MG TAB PO PRN ×2 (11:41→15:58)
--- NOTE | 2018-07-30 13:02 | GDS ---
DISCHARGE DIAGNOSES: 1. Mechanical fall. 2. Gait instability. 3. Left-sided rib pain. 4. Coronary artery disease. 5. Hypertension. 6. Chronic pain, with continuous narcotic use and dependency. 7. Chronic anxiety, with chronic benzodiazepine use. 8. Chronic kidney disease. 9. Nicotine dependence. STUDIES AND PROCEDURES DONE: 1. Hip fracture. 2. Femur fracture. 3. Chest x-ray. PHYSICAL EXAM: GENERAL: The patient is alert. VITAL SIGNS: Afebrile at 36.6, pulse 9s 62, respira tory rate is 18, blood pressure is 113/55. She is saturating 91% on room air. I have seen and evalu ated the patient on the day of discharge. HOSPITAL COURSE: The patient is an 82-year-old female who presented to the emergency room after suff ering a mechanical fall. She was evaluated and diagnosed with: 1. Gait instability. The patient had a mechanical fall. She was evaluated by Physical Therapy and Occupational Therapy. She will require [facility] facility for rehabilitation. 2. Left-sided rib pain. We will continue supportive management for this, and the patient will sia nue therapies. 3. History of coronary artery disease. This is stable. 4. Hypertension. This is stable. 5. Chronic pain with continuous narcotic use and dependency. I have continued her previously prescr ibed medications. 6. Chronic anxiety with chronic benzodiazepine. Her medications have been continued. 7. Nicotine dependence. Patch has been ordered. 8. Chronic kidney disease. This is close to her baseline. DISPOSITION: The patient will be discharged today to [facility] facility for further rehabilita tion and management. There are no pending studies. DISCHARGE MEDICATIONS: Please refer to EMR form. She has been provided new medications, including V oltaren gel, as well as [place], Lidoderm patch, and oxycodone IR. FOLLOWUP: Followup will be with her primary care physician. I spent greater than 35 minutes in the care, coordination, and management of patient's disposition. /[id number]/MODL
== END 2018-07-30 16:29 | DRG 204 ==
LOC: EDUNIT# → INTOOBSV 20:22 → F3E 21:54 → OBSVTOIN 07-27 17:15
PROVIDERS: ADMIT Internal Medicine; ATTEND Internal Medicine
DX: R07.81 Pleurodynia (principal); M25.552 Pain in left hip; W01.0XXA Fall on same level from slipping, tripping and stumbling without subsequent striking against object, initial encounter; Y92.009 Unspecified place in unspecified non-institutional (private) residence as the place of occurrence of the external cause; R26.89 Other abnormalities of gait and mobility; I12.9 Hypertensive chronic kidney disease with stage 1 through stage 4 chronic kidney disease, or unspecified chronic kidney disease; N18.9 Chronic kidney disease, unspecified; I25.10 Atherosclerotic heart disease of native coronary artery without angina pectoris; G89.29 Other chronic pain; F11.20 Opioid dependence, uncomplicated; J44.9 Chronic obstructive pulmonary disease, unspecified; F41.9 Anxiety disorder, unspecified; E78.5 Hyperlipidemia, unspecified; Z95.5 Presence of coronary angioplasty implant and graft; Z96.642 Presence of left artificial hip joint; F17.210 Nicotine dependence, cigarettes, uncomplicated
CPT/HCPCS: 96374; 97110-GP; 97116-GP; 97161-GP; 97165-GO; 97530-GO; 97530-GP; 97535-GO; G0378; G8978-GP-CJ; G8979-GP-CI; G8987-GO-CJ; G8988-GO-CI; J1650; J1885; J3010

== ENCOUNTER 2018-08-25 08:48 | Emergency (ER) | payer OTHER ==
--- NOTE | 2018-08-25 09:24 | EDPHY ---
General - History Smoking Status: Heavy smoker Time Seen by Provider: 08/25/18 09:14 Narrative: CHIEF COMPLAINT: High blood pressure HISTORY OF PRESENT ILLNESS: Patient presents per private vehicle with complaints of high blood pressure. She states she woke this morning and checked her blood pressure as usual, it was reportedly 220/94 at 7:00 a.m.. She took an extra Micardis and clonidine per instructions from her primary care physician. She has been asymptomatic all day with no headache or chest pain. No dizziness or lightheadedness. No difficulty urination. She has not calibrated her blood pressure machine and many months. She says that she has an appointment with primary care physician on Tuesday. She has no other associated complaints or modifying factors. REVIEW OF SYSTEMS: 10 systems were reviewed and negative with the exception of the elements mentioned in the history of present illness. PCP: Dr. Warren SPECIALISTS: Cardiology, Dr. Isaac Gil, Dr. Damon and Dr. Ngo PAST MEDICAL HISTORY: Hypertension, dyslipidemia, chronic back pain, brain aneurysm status post coiling, carotid stenosis, osteoarthritis, CAD PAST SURGICAL HISTORY: CAD stents, hip replacement, carotid endarterectomy, aneurysm coiling, tonsillectomy SOCIAL HISTORY: Nonsmoker. Lives independently with her spouse. FAMILY HISTORY: Noncontributory EXAMINATION: Vitals: Triage VS reviewed General Appearance: Alert, no distress. Well appearing. Head: normocephalic, atraumatic Eyes: Pupils equal and round, no conjunctival pallor or injection. EOM symmetric ENT, Mouth: Mucous membranes moist Neck: Normal inspection, supple, non-tender Respiratory: Lungs are clear to auscultation Cardiovascular: Regular rate and rhythm. No murmur Gastrointestinal: Abdomen is soft and nontender Back: non-tender, no bony abnormalities Neurological: GCS 15. A&O, nonfocal, normal gait. Strength is symmetric. No pronator drift. Normal [id number]. Skin: Warm and dry, no rash Extremities: Nontender, no pedal edema Psychiatric: Mood and affect normal DIFFERENTIAL DIAGNOSES: Including but not limited to essential hypertension, hypertensive emergency, hypertensive urgency, CVA MDM: 9:15 a.m. Reports of elevated blood pressure this morning at 7:00 a.m. That has now resolved. She has no chest pain. No encephalopathy. No evidence of stroke or stroke-like complaints. Her blood pressure is 154/80 a bedside. She did take 1 extra Micardis and clonidine as instructed by her primary care physician. I will discuss with them for further recommendations. 9:30 a.m. Case discussed with patient's primary care physician Dr. Warren. He recommend that she continue to monitor blood pressure and take the clonidine in addition to her medications as needed but not any additional Micardis on a standing basis. He would like her to bring her blood pressure cuff into the office to have a calibrated. He would like to keep her appointment on Tuesday with him. He would like her to return here for any elevation of her blood pressure or any symptoms associated with her blood pressure. I re-evaluated the patient and stressed the importance of ED precautions for any headache, chest pain, shortness of breath, numbness, tingling, weakness, unilateral complaints, difficulty with speech or facial droop. With the patient's spouse are comfortable this plan. They are comfortable with no further workup would like to go home. Discharged home stable condition. SUPERVISION: This patient was independently evaluated without direct involvement of or examination by the attending physician. CONSULTATION: Primary care physician, Dr. Warren ([facility]) Medical Decision Making: I did not see this patient while she was in the emergency department. However her care was discussed with the PA while the patient was in the department. I agree with treatment plan and management. (Lai Stallworth) - Objective Vital Signs: Initial Vital Signs Temperature (C) 37.3 C 08/25/18 08:51 Heart Rate 69 08/25/18 08:51 Respiratory Rate 18 08/25/18 08:51 Blood Pressure 169/71 H 08/25/18 08:51 O2 Sat (%) 93 08/25/18 08:51 O2 Delivery Mode Room Air Allergies/Adverse Reactions: No Known Allergies Allergy (Verified 08/25/18 08:51) Home Medications: Medication Instructions Recorded Aspirin [Aspirin 81mg (*)] 81 mg PO HS 11/26/14 Omeprazole [Prilosec 20 mg] 20 mg PO BID 11/26/14 Carvedilol [Coreg] 12.5 mg PO HS 10/11/15 Proair Hfa 1 inh IH Q4 PRN 02/04/17 Telmisartan [Micardis] 80 mg PO BID 04/28/17 Atorvastatin Calcium [Lipitor 20 20 mg PO DAILY 07/26/18 mg (*)] Hydrochlorothiazide [HCTZ (*)] 25 mg PO DAILY 07/26/18 Meclizine HCl [Meclizine HCl 25 mg 25 mg PO BID PRN 07/26/18 (RX,OTC)] Ondansetron Odt [Zofran Odt 4 mg 4 mg PO TID PRN 07/26/18 (*)] Sennosides/Docusate Sodium 3 each PO HS 07/26/18 [SENEXON-S TABLET] Acetaminophen [Tylenol 325mg (*)] 650 mg PO Q4HRS PRN tab 07/30/18 Diclofenac Sodium 1% [Voltaren Gel 4 gm TP QID gel 07/30/18 (*)] Hydrocodone/Acetaminophen 1 each PO Q6H PRN #60 tablet 07/30/18 [Hydrocodon-Acetaminophen 5-325] LORazepam [Ativan (*)] 0.5 mg PO DAILY PRN #30 tab 07/30/18 LORazepam [Ativan (*)] 0.5 mg PO HS #30 tab 07/30/18 Lidocaine 4%/Menthol 1% [Icy Hot 2 patch TD DAILY patch 07/30/18 Lidocaine/Menthol 4%/1% Patch (*)] Methocarbamol [Robaxin 750 mg (*)] 750 mg PO TID PRN tab 07/30/18 Nicotine [Nicoderm Cq 14 mg (*)] 14 mg TD DAILY patch 07/30/18 PE/Shark Liver/Gly/Pet,Wh 1 t[place]ana [place] QID PRN crtube 07/30/18 [Preparation H Cream (*)] Patch Removal 2 ea TD DAILY patch 07/30/18 Polyethylene Glycol 3350 [Miralax 17 gm PO DAILY PRN pkt 07/30/18 17 gm (*)] oxyCODONE IR [Oxycodone Ir (*)] 5 - 10 mg PO Q6H PRN #60 tab 07/30/18 Lasix 08/25/18 Departure - Departure Disposition: Home, Routine, Self-Care Clinical Impression: Hypertension Condition: Good Instructions: Hypertension (ED) Additional Instructions: 1. Continue checking her blood pressure at home and take your blood pressure cough to your primary care physician's office to be calibrated today of possible 2. Continue taking your clonidine as needed as prescribed by your physician for blood pressure changes. 3. Return to emergency depart for any persistent increasing blood pressure, headache, chest pain, shortness of breath, dizziness, lightheadedness, numbness , tingling, weakness, difficulty ambulating, unilateral complaints, facial droop or difficulty with speech. Referrals: Mikala Warren MD [Primary Care Provider] - As per Instructions Physician,Emergency DeptMD [Medical Doctor] - As per Instructions (As discussed)
[2018-08-25 10:02] VITALS: BP 159/88
== END 2018-08-25 10:00 | disposition home or self-care (01) ==
DX: I10 Essential (primary) hypertension (principal)